=== PATIENT | female | born 1990 | race American Indian/Alaskan Native ===

== ENCOUNTER 2021-09-11 08:34 | Inpatient (IN) | payer MEDICAID ==
[2021-09-11] MEDS ORDERED: LACTATED RINGERS 1,000 ML ONE (09:39)
[2021-09-11] MEDS ORDERED: miSOPROStol 200 MCG TAB PR PRN (11:30)
[2021-09-11] MEDS ORDERED: LIDOCAINE (2%) 20 MG/1 ML VIAL 20 ML MDV INFILTRATI NR (11:35)
[2021-09-11] MEDS ORDERED: OXYTOCIN 10 UNIT/1 ML INJ IM PRN (11:35)
[2021-09-11] MEDS ORDERED: TERBUTALINE 1 MG/1 ML INJ SUB-Q PRN (11:35)
[2021-09-11] MEDS ORDERED: AMPICILLIN/NS 2 GM/100 ML 2 GM/100 ML BAG IV ONE (12:00)
[2021-09-11] MEDS ORDERED: LACTATED RINGERS 1,000 ML IV SCH (12:00)
[2021-09-11] MEDS ORDERED: OXYTOCIN DRIP 30 UNITS/500 ML BAG IV SCH (12:00)
[2021-09-11] MEDS ORDERED: SODIUM CHLORIDE 0.9% 1000 ML 1,000 ML ONE (12:18)
[2021-09-11 12:25] LABS: Hematocrit 39.3 % (30.3-42.9); Hemoglobin 12.4 gm/dl (10.1-14.3); Mean Corpuscular HGB Conc 32 % (30-34); Mean Corpuscular Volume 76 fl (79-97); Platelet Count 206 K/mm3 (140-440); Red Blood Count 5.18 M/mm3 (3.65-5.03); Red Cell Distribution Width 16.6 % (13.2-15.2)
[2021-09-11] MEDS: OXYTOCIN DRIP 30 UNITS/500 ML BAG IV SCH (12:29)
[2021-09-11] MEDS ORDERED: SODIUM CHLORIDE 0.9% 1000 ML 1,000 ML IV SCH (12:30)
[2021-09-11] MEDS ORDERED: METHYLERGONOVINE MALEATE 0.2 MG/ML VIAL IM PRN (12:30)
[2021-09-11] MEDS ORDERED: BUTORPHANOL 2 MG/1 ML INJ IV PRN (12:30)
[2021-09-11] MEDS ORDERED: fentaNYL 100 MCG/2 ML INJ IV PRN (12:30)
[2021-09-11] MEDS ORDERED: ACETAMINOPHEN 325 MG TAB PO PRN (12:30)
[2021-09-11] MEDS ORDERED: LOPERAMIDE 2 MG CAP PO PRN (12:30)
[2021-09-11] MEDS ORDERED: ePHEDrine SULFATE 50 MG/1 ML INJ IV PRN (12:30)
[2021-09-11] MEDS ORDERED: CARBOPROST TROMETHAMINE 250 MCG/1 ML INJ IM PRN (12:30)
[2021-09-11 12:44] LABS: Alanine Aminotransferase 9 units/L (7-56); BUN/Creatinine Ratio 10; Blood Urea Nitrogen 4 mg/dL (7-17); Calcium 9.2 mg/dL (8.4-10.2); Hemolysis Index 0
--- NOTE | 2021-09-11 14:48 | History and Physical Report ---
History of Present Illness Date of examination: 09/11/21 Date of admission: 09/11/21 08:34 Chief complaint: sent for induction from [facility] with pregest vs Gest DM requiring a large amount of insulin for control History of present illness: at at 37.2wks by LMP c/w U/S. PNC at [facility] and records have her as . When asked pt states that she that she did not tell [facility] about her last vag delivery at [place], making her G9 and all vag deliveries. Pt has not eaten all day. Pt admits to movement. Denies LOF or vag bleed or headache. pt states she is not feeling any contractions. labs with AB positive, neg antibody screen, rubella immune, VDRL non- reactive, HepBsAg negative, HIV negative and HSVII negative and no GBS result seen in the chart. Pt desires no future fertility. Past History Past Medical History: asthma, diabetes (unclear if gest vs pre-gest; pt requiring insulin for control) Past Surgical History: no surgical history Social history: no significant social history - Obstetrical History Expected Date of Delivery: 09/30/21 Actual Gestation: 37 Week(s) 2 Day(s) : 9 Hx # Term Pregnancies: 8 Number of Living Children: 8 Medications and Allergies Allergies Allergy/AdvReac Type Severity Reaction Status Date / Time No Known Allergies Allergy Verified 09/11/21 09:27 Active Meds: Active Medications Acetaminophen (Acetaminophen 325 Mg Tab) 650 mg PO Q4H PRN PRN Reason: Pain, Mild (1-3) Butorphanol Tartrate (Butorphanol 2 Mg/1 Ml Inj) 1 mg IV Q2H PRN PRN Reason: Pain, Moderate(4-6) LABOR PAIN Carboprost Tromethamine (Carboprost Tromethamine 250 Mcg/1 Ml Inj) 250 mcg IM ONCE PRN PRN Reason: Uterine Bleeding Ephedrine Sulfate (Ephedrine Sulfate 50 Mg/1 Ml Inj) 10 mg IV Q2M PRN PRN Reason: Hypotension Fentanyl (Fentanyl 100 Mcg/2 Ml Inj) 100 mcg IV Q2H PRN PRN Reason: Pain,Severe (7-10) LABOR PAIN Oxytocin/Sodium Chloride (Pitocin/Ns 30 Unit/500ml) 30 units in 500 mls @ 2 mls/hr IV TITR MARIN; Protocol Last Titration: 09/11/21 13:46 Dose: 4 mls/hr, 4 mls/hr Lactated Ringer's (Lactated Ringers) 1,000 mls @ 125 mls/hr IV DIRECT MARIN Oxytocin/Sodium Chloride (Pitocin/Ns 30 Unit/500ml) 30 units in 500 mls @ 40 mls/hr IV TITR MARIN; Protocol Ampicillin Sodium (Ampicillin/Ns 1 Gm/50 Ml) 1 gm in 50 mls @ 100 mls/hr IV Q4HR ONE; Protocol Stop: 09/11/21 16:29 Sodium Chloride (Nacl 0.9% 1000 Ml) 1,000 mls @ 125 mls/hr IV DIRECT MARIN Last Admin: 09/11/21 12:30 Dose: 125 mls/hr Lidocaine (Lidocaine (2%) 20 Mg/1 Ml Vial 20 Ml Mdv) 20 ml INFILTRATI ONCE NR Stop: 09/11/21 15:00 Loperamide HCl (Loperamide 2 Mg Cap) 2 mg PO ONCE PRN PRN Reason: give with Hemabate Methylergonovine Maleate (Methylergonovine Maleate 0.2 Mg/Ml Vial) 0.2 mg IM ONCE PRN PRN Reason: Uterine Bleeding Mineral Oil (Mineral Oil 30 Ml Oral Liqd) 30 ml PO QHS PRN PRN Reason: Constipation Misoprostol (Misoprostol 200 Mcg Tab) 800 mcg SD ONCE PRN PRN Reason: Uterine Bleeding Oxytocin (Oxytocin 10 Unit/1 Ml Inj) 10 unit IM ONCE PRN PRN Reason: Uterine Bleeding Terbutaline Sulfate (Terbutaline 1 Mg/1 Ml Inj) 0.25 mg SUB-Q ONCE PRN PRN Reason: Hyperstimulation/Hypertonicity Review of Systems All systems: negative (sent for induction) - Vital Signs Vital signs: Vital Signs Pulse Pulse Ox 95 H 98 09/11/21 09:01 09/11/21 09:01 Temp Pulse Resp BP Pulse Ox 98.9 F 98 H 123/83 97 09/11/21 10:30 09/11/21 14:41 09/11/21 09:05 09/11/21 14:41 - Physical Exam Breasts: Positive: deferred Cardiovascular: Regular rate Lungs: Positive: Normal air movement Genitourinary (Female): Positive: normal external genitalia Vulva: both: normal Vagina: Positive: normal moisture Uterus: Positive: enlarged (non-tender) Extremities: Positive: normal - Obstetrical FHR: category 1 Uterine Contraction Monitor Mode: External Cervical Dilatation: 5 (3cm in triage previously) Cervical Effacement Percentage: 80 station: -4 Uterine Contraction Pattern: Irregular Uterine Contraction Intensity: Mild Results Result Diagrams: 09/11/21 Unknown 09/11/21 Unknown Abnormal lab results 09/11/21 09/11/21 09/11/21 Range/Units 10:57 12:04 Unknown RBC 5.18 H (3.65-5.03) M/mm3 MCV 76 L (79-97) fl MCH 24 L (28-32) pg RDW 16.6 H (13.2-15.2) % Sodium (137-145) mmol/L Carbon Dioxide (22-30) mmol/L BUN (7-17) mg/dL Creatinine (0.6-1.2) mg/dL Glucose (65-100) mg/dL POC Glucose 123 H 107 H (70-105) mg/dL Alkaline Phosphatase (35-129) units/L 09/11/21 Range/Units Unknown RBC (3.65-5.03) M/mm3 MCV (79-97) fl MCH (28-32) pg RDW (13.2-15.2) % Sodium 134 L (137-145) mmol/L Carbon Dioxide 20 L (22-30) mmol/L BUN 4 L (7-17) mg/dL Creatinine 0.4 L (0.6-1.2) mg/dL Glucose 121 H (65-100) mg/dL POC Glucose (70-105) mg/dL Alkaline Phosphatase 162 H (35-129) units/L All other labs normal. Assessment and Plan Term , grand multiparous in latent labor, Diabetes ? pregest vs Gest with APA recommendation for delivery. GBS unknown. Pt has valid tubal papers for permanent sterilization. 1. Admit to labor and delivery, normal saline IVF and accucheck hourly and if wnl, then every 2hrs; Will allow dinner meal if not delivered and cover with half the dosage and adjust upward if needed 2. Augment labor with pitocin 3. GBS prophylaxis 4. May have IV pain med or epidural when desired; no meals after epidural given 5. May have albuterol prn wheezing with history of asthma 6. Should have 2nd IV access in prep for possible PPH 7. Will check EFW; Bedside u/s by me confirms vertex with upper extrem fingers seen and felt on exam; Head not engaged Plan of care discussed with pt . Expect
[2021-09-11] MEDS ORDERED: ALBUTEROL 2.5 MG/3 ML NEBU IH PRN (15:40)
[2021-09-11] MEDS ORDERED: AMPICILLIN/NS 1 GM/50 ML 1 GM/50 ML BAG IV ONE (16:00)
[2021-09-11] MEDS ORDERED: INSULIN REGULAR, HUMAN 100 UNITS/1 ML SUB-Q ONE (17:00)
[2021-09-11] MEDS ORDERED: MINERAL OIL 30 ML ORAL LIQD PO PRN (22:00)
[2021-09-11] MEDS ORDERED: INSULIN NPH, HUMAN 100 UNIT/1 ML SUB-Q ONE (22:31)
[2021-09-11] MEDS: miSOPROStol 25 MCG TAB PO SCH (23:35)
[2021-09-11] MEDS: AMPICILLIN/NS 1 GM/50 ML 1 GM/50 ML BAG IV SCH (23:36)
--- NOTE | 2021-09-11 23:41 | Ultrasound Report ---
ULTRASOUND OBSTETRIC INDICATION / CLINICAL INFORMATION: EFW. - Clinical Gestational Age (GA) in weeks, days: 37, 2 TECHNIQUE: Transabdominal. COMPARISON: None available. FINDINGS: Single intrauterine . Biparietal Diameter = 9.2 cm = 37, 3 weeks, days Head Circumference = 33.0 cm = 37, 4 weeks, days Abdominal Circumference = 34.4 cm = 38, 2 weeks, days Femur Length = 7.2 cm = 36, 6 weeks, days Average Ultrasound Age (AUA) = 37, 4 weeks, days Heart Rate: 162 beats per minute. Estimated Weight in grams (if calculated): 3314 g Estimated Weight Growth Percentile (if calculated): 72% Position: cephalic. Cervix: Not evaluated Placenta: Not well visualized Amniotic Fluid Volume: Not evaluated. Maternal Adnexa: Not evaluated. IMPRESSION: 1. Single, living intrauterine with estimated sonographic age of 37, 4 weeks, days. Signer Name: Alfredo Elizabeth MD Signed: 09/11/2021 11:37 PM Workstation Name: [id number]
--- NOTE | 2021-09-11 23:41 | Event Note ---
Date: 09/11/21 CC: IOL secondary to poorly controlled GDMA2 vs. Class B DM HPI: 30 y/o at 37-2/7 weeks gestation is undergoing IOL secondary to poorly controlled GDMA2 vs. class B DM. She was seen by MFM, and this was the recommendation. No VB or LOF. Good FM. CTX are not painful. At a weight of 184 lbs, her insulin regimen at 0.9 units/kg/day is calculated to be: Breakfast= Rapid-acting or regular insulin 17 units SC, and NPH insulin 34 units SC. Dinner= Rapid-acting or regular insulin 12 units SC. Hour of Sleep (HS)= NPH insulin 12 units SC. O: EFM= category 1 TOCO= q 5 minutes, on Pitocin SVE= 5/70%/-4 LABS: HgBA1c= pending TSH= pending Pre-eclampsia labs= pending UPCR= pending RAD: OB US Limited= SLIUP. Vertex. EFW= 3314 g (71st %-ile) IMP: 1.) 37 weeks gestation 2.) GMDA2 vs. Class B DM (more likely), poorly controlled 3.) Asthma, moderate intermittent 4.) Proteinuria 5.) Grand multiparity 6.) GBS unknown 7.) IOL PLAN: 1.) Call office in AM to obtain GBS culture results. 2.) Give HS dose of NPH 12 units tonight. 3.) The patient is likely an undiagnosed Class B DM as she had HgBA1c= 7.2 in D ecember 2020. 4.) If there is no further cervical change with Pitocin, then ripen cervix further with oral misoprostol instead. 5.) Albuterol prescribed. 6.) The patient states that she wants a BTL . 7.) Check accucheck q 1 hour in active labor. 8.) Goal accuchecks in active labor are 79-99 mg/dL. 9.) If accuchecks are >=100 mg/dL in active labor, then start Lantus 30 units SC. 10.) If glucose <70 mg/dL, then switch saline to 5% dextrose IV at 100-150 mL/hr.
[2021-09-12 02:55] LABS: Uric Acid 2.7 mg/dL (3.5-7.6)
[2021-09-12] MEDS: AMPICILLIN/NS 1 GM/50 ML 1 GM/50 ML BAG IV SCH ×2 (03:44→07:32)
[2021-09-12] MEDS: miSOPROStol 25 MCG TAB PO SCH (03:44)
[2021-09-12] MEDS: OXYTOCIN DRIP 30 UNITS/500 ML BAG IV SCH (07:29)
[2021-09-12] MEDS ORDERED: BUTORPHANOL 2 MG/1 ML INJ IV PRN (09:00)
--- NOTE | 2021-09-12 09:18 | Procedure Note ---
OB Delivery Note - Delivery Date of Delivery: 09/12/21 Surgeon: RENETTA WHITMAN Estimated blood loss: other (700cc) - Vaginal Delivery presentation: vertex Delivery position: OA Intrapartum events: uterine atony (treated with methergine 0.2mg) Delivery induction: AROM Delivery augmentation: pitocin (and also given cytotec orally given x2 doses by plate conditioner team with cervix at 5cm ) Delivery monitor: external FHT, external uterine Route of delivery: Delivery placenta: spontaneous Delivery cord: nuchal cord (tight and baby delivered thru same with pt not stopping to push), 3 umbilical vessels Episiotomy: none Delivery laceration: none Anesthesia: none Delivery comments: AROM done by plate conditioner team and nurse called me to bedside with pt pushing. Pt complete and pushing, SAVD of viable female with tight nuchal cord and pt just kept pushing against med advice; manuevers done by me to safely deliver and baby given to JS nurse present. Sudden gush of large amount of blood approx 300-400cc, placenta then delivered complete with 3vessel cord. Bimanual done and methergin 0.2mg given IM for uterine atony. Pitocin also given IV. Total EBL approx 700cc. Pt had abraision to perineum that required no repair. Mom and baby stable. - A at 1 minute: 8 at 5 minutes: 9 Infant Gender: Female (large amount of amniotic fluid clear; wt 3660g)
[2021-09-12] MEDS ORDERED: MAGNESIUM HYDROXIDE (MOM) ORAL LIQD UDC PO PRN (11:30)
[2021-09-12] MEDS ORDERED: ONDANSETRON 4 MG/2 ML INJ IV PRN (11:30)
[2021-09-12] MEDS ORDERED: BENZOCAINE/MENTHOL 20/0.5% TOP SPRAY 56 GM TP PRN (11:30)
[2021-09-12] MEDS ORDERED: diphenhydrAMINE 25 MG CAP PO PRN (11:30)
[2021-09-12] MEDS ORDERED: WITCH HAZEL/ GLYCERIN PAD TP PRN (11:30)
[2021-09-12] MEDS ORDERED: PROMETHAZINE 25 MG RECT SUPP PR PRN (11:30)
[2021-09-12] MEDS ORDERED: LANOLIN/ZINC/DIMETHICONE (LANSINOH) 7 GM TP PRN (11:30)
[2021-09-12] MEDS ORDERED: oxyCODONE /ACETAMINOPHEN 5-325MG TAB PO PRN (12:00)
[2021-09-12] MEDS ORDERED: PROMETHAZINE 25 MG TAB PO PRN (12:00)
[2021-09-12] MEDS ORDERED: OXYTOCIN DRIP 30 UNITS/500 ML BAG IV SCH (12:00)
[2021-09-12] MEDS: IBUPROFEN 600 MG TAB PO SCH ×2 (12:09→17:23)
--- NOTE | 2021-09-12 12:33 | Consultation ---
History of Present Illness - Reason for Consult Consult date: 09/12/21 Diabetes Requesting physician: RENETTA WHITMAN - History of Present Illness 30 YO Female with gestational diabetes status post . Consult placed for diabetes melitis. Patient seen and evaluated in her room. Patient denies fever, chills, chest pain, palpitation, productive cough, skin rash, recent ill contacts, polydipsia, polyuria, polyphagia, or known exposure to COVID-19. No reported nursing events. Past History Past Medical History: diabetes Past Surgical History: No surgical history, Other (Reviewed) Social history: single. denies: smoking, alcohol abuse, prescription drug abuse Family history: hypertension Medications and Allergies Allergies Allergy/AdvReac Type Severity Reaction Status Date / Time No Known Allergies Allergy Verified 09/11/21 09:27 Active Meds: Active Medications Acetaminophen (Acetaminophen 325 Mg Tab) 650 mg PO Q4H PRN PRN Reason: Pain, Mild (1-3) Albuterol (Albuterol 2.5 Mg/3 Ml Nebu) 2.5 mg IH Q4HRT PRN PRN Reason: Shortness Of Breath Benzocaine/Menthol (Benzocaine/Menthol 20/0.5% Top [place] 56 Gm) 1 spray TP PRN PRN PRN Reason: Episiotomy Pain Bisacodyl (Bisacodyl 10 Mg Rect Supp) 10 mg NE BID PRN PRN Reason: Constipation Diphenhydramine HCl (Diphenhydramine 25 Mg Cap) 25 mg PO Q6H PRN PRN Reason: Itching Sodium Chloride (Nacl 0.9% 1000 Ml) 1,000 mls @ 125 mls/hr IV DIRECT MARIN Last Admin: 09/11/21 12:30 Dose: 125 mls/hr Oxytocin/Sodium Chloride (Pitocin/Ns 30 Unit/500ml) 30 units in 500 mls @ 40 mls/hr IV TITR MARIN; Protocol Ibuprofen (Ibuprofen 600 Mg Tab) 600 mg PO Q6H MARIN Loperamide HCl (Loperamide 2 Mg Cap) 2 mg PO ONCE PRN PRN Reason: give with Hemabate Magnesium Hydroxide (Magnesium Hydroxide (Mom) Oral Liqd Udc) 30 ml PO HS PRN PRN Reason: Constipation Multi-Ingredient Ointment (Lanolin/Zinc/Dimethicone (Lansinoh) 7 Gm) 1 applic TP PRN PRN PRN Reason: Sore Nipples Multivitamins/Iron/Calcium ( [id number]-Ll Fumarate-Folic Acid Vit Tab) 1 each PO QDAY MARIN Ondansetron HCl (Ondansetron 4 Mg/2 Ml Inj) 4 mg IV Q8H PRN PRN Reason: Nausea And Vomiting Oxycodone/Acetaminophen (Oxycodone /Acetaminophen 5-325mg Tab) 2 tab PO Q6H PRN PRN Reason: Pain, Moderate (4-6) Promethazine HCl (Promethazine 25 Mg Rect Supp) 25 mg NE Q6H PRN PRN Reason: Nausea And Vomiting Promethazine HCl (Promethazine 25 Mg Tab) 25 mg PO Q6H PRN PRN Reason: Nausea And Vomiting Sodium Chloride (Sodium Chloride 0.9% 10 Ml Flush Syringe) 10 ml IV PRN PRN PRN Reason: flush Witch Jodi/Glycerin (Witch Jodi/ Glycerin Pad) 1 each TP PRN PRN PRN Reason: Hemorrhoid/cleansing/soothing Review of Systems Constitutional: no weight loss, no weight gain, no fever Ears, nose, mouth and throat: no ear pain, no decreased hearing, no nose pain Breasts: no change in shape, no swelling, no mass Cardiovascular: no chest pain, no orthopnea, no palpitations Respiratory: no cough, no cough with sputum, no hemoptysis, no shortness of breath Gastrointestinal: no abdominal pain, no nausea, no vomiting, no diarrhea Genitourinary Female: no pelvic pain, no flank pain, no dysuria, no urinary frequency, no urgency Rectal: no pain, no incontinence, no bleeding Musculoskeletal: no neck stiffness, no neck pain, no arm numbness/tingling, no leg numbness/tingling Integumentary: no rash, no pruritis, no redness, no sores, no wounds Neurological: no transient paralysis, no paralysis, no weakness, no numbness, no tingling, no syncope, no tremors Psychiatric: no anxiety, no memory loss, no change in sleep habits, no hype rsomnia, no change in libido, no suicidal ideation Endocrine: no cold intolerance, no polyphagia, no excessive thirst, no polyuria Hematologic/Lymphatic: no easy bruising, no easy bleeding Allergic/Immunologic: no urticaria, no allergic rhinitis Exam - Constitutional Vitals: Temp Pulse Resp BP Pulse Ox 98.5 F 104 H 128/84 83 L 09/11/21 20:56 09/12/21 10:07 09/12/21 10:05 09/12/21 10:07 General appearance: Present: no acute distress, well-nourished - EENT Eyes: Present: PERRL ENT: hearing intact, clear oral mucosa - Neck Neck: Present: supple, normal ROM - Respiratory Respiratory effort: normal Respiratory: bilateral: CTA - Cardiovascular Heart Sounds: Present: S1 & S2. Absent: rub, click - Extremities Extremities: pulses symmetrical, No edema Peripheral Pulses: within normal limits - Abdominal General gastrointestinal: Present: soft, non-tender, non-distended, normal bowel sounds Female genitourinary: Present: normal - Integumentary Integumentary: Present: clear, warm, dry - Musculoskeletal Musculoskeletal: gait normal, strength equal bilaterally - Psychiatric Psychiatric: appropriate mood/affect, intact judgment & insight - Neurologic Neurologic: CNII-XII intact, moves all extremities Results - Labs CBC & Chem 7: 09/11/21 Unknown 09/11/21 Unknown Labs: Abnormal lab results 09/11/21 09/11/21 09/11/21 Range/Units 18:02 18:59 Unknown Sodium 134 L (137-145) mmol/L Carbon Dioxide 20 L (22-30) mmol/L BUN 4 L (7-17) mg/dL Creatinine 0.4 L (0.6-1.2) mg/dL Glucose 121 H (65-100) mg/dL POC Glucose 143 H 126 H (70-105) mg/dL Hemoglobin A1c (4-6) % Uric Acid (3.5-7.6) mg/dL Alkaline Phosphatase 162 H (35-129) units/L Lactate Dehydrogenase (91-180) units/L 09/11/21 09/11/21 Range/Units Unknown Unknown Sodium (137-145) mmol/L Carbon Dioxide (22-30) mmol/L BUN (7-17) mg/dL Creatinine (0.6-1.2) mg/dL Glucose (65-100) mg/dL POC Glucose (70-105) mg/dL Hemoglobin A1c 7.0 H (4-6) % Uric Acid 2.7 L (3.5-7.6) mg/dL Alkaline Phosphatase (35-129) units/L Lactate Dehydrogenase 197 H (91-180) units/L Assessment and Plan - Patient Problems (1) Gestational diabetes Current Visit: Yes Status: Acute Plan to address problem: Suspect improvement in gestational diabetes status post vaginal delivery. We will continue Accu-Cheks, sliding scale insulin. Patient counseled regarding carbohydrate counting. Blood glucose log 3 times daily and outpatient follow-up with primary care physician.
[2021-09-12] MEDS ORDERED: DEXTROSE 50% IN WATER (25GM) 50 ML SYRINGE IV PRN (12:35)
[2021-09-12] MEDS: INSULIN LISPRO 100 UNIT/ML SUB-Q SCH ×2 (16:09→22:37)
[2021-09-12 16:18] LABS: Bilirubin,Urine NEG (Negative); Blood,Urine LG (Negative); Color,Urine Red (Yellow); Mucus,Urine FEW /HPF; Urobilinogen,Urine < 2.0 mg/dL (<2.0)
[2021-09-12 16:19] LABS: RBC,Urine > 182.0 /HPF (0.0-6.0)
[2021-09-12 16:27] LABS: Creatinine,Urine 27.2 mg/dL (0.1-20.0)
[2021-09-12 21:22] LABS: Hematocrit 35.6 % (30.3-42.9)
[2021-09-13] MEDS: IBUPROFEN 600 MG TAB PO SCH ×3 (01:21→21:04)
[2021-09-13] MEDS: INSULIN LISPRO 100 UNIT/ML SUB-Q SCH ×3 (07:52→19:50)
[2021-09-13] MEDS: PRENATAL VIT27-FE FUMARATE-FOLIC ACID VIT TAB PO SCH (09:35)
[2021-09-13] MEDS: metFORMIN XR 500MG TAB PO SCH (10:03)
--- NOTE | 2021-09-13 15:20 | Progress Note ---
Assessment and Plan PPD#1 with uncontrolled diabetes, desires contraception with depo prior to discharge 1. Depo injection 2. routine care 3. Appreciate hospitalist Dr. Veloz and will continue daily metformin ordered by Dr. Paris and adjust per med team All questions encouraged and answered Subjective Date of service: 09/13/21 Principal diagnosis: PPD#1 , uncontrolled DM Interval history: pt states she feels much better. pt states she got the metformin pill and also 1 SS insulin coverage dose. Pt is bottle feeding. Denies pelvic pain and is voiding without difficulty. pt desires no future fertility and desires depo contraception prior to discharge. Objective - Constitutional Vitals: Vital Signs - 12hr 09/13/21 09/13/21 06:20 07:57 Temperature 98.3 F Pulse Rate 76 Respiratory 18 18 Rate Blood Pressure 94/62 O2 Sat by Pulse 97 Oximetry General appearance: Present: no acute distress - Neck Neck: normal ROM - Respiratory Respiratory effort: normal - Breasts Breasts: deferred - Cardiovascular Rhythm: regular Extremities: No edema - Gastrointestinal General gastrointestinal: Present: soft - Genitourinary Female genitourinary: other (Fundus firm, 3cm below the umbilicus and non- tender) - Integumentary Integumentary: warm, dry - Neurologic Neurologic: moves all extremities - Psychiatric Psychiatric: cooperative - Labs CBC & Chem 7: 09/12/21 20:47 09/11/21 Unknown Labs: Abnormal lab results 09/12/21 09/12/21 09/12/21 Range/Units 16:00 16:00 16:02 POC Glucose 110 H (70-105) mg/dL Urine WBC (Auto) 22.0 H (0.0-6.0) /HPF Urine Creatinine 27.2 H (0.1-20.0) mg/dL Urine Total Protein 35 H (5-11.8) mg/dL 09/12/21 09/13/21 Range/Units 22:30 13:46 POC Glucose 166 H 120 H (70-105) mg/dL Urine WBC (Auto) (0.0-6.0) /HPF Urine Creatinine (0.1-20.0) mg/dL Urine Total Protein (5-11.8) mg/dL Medications & Allergies - Medications Allergies/Adverse Reactions: Allergies No Known Allergies Allergy (Verified 09/11/21 09:27) Active Medications: Generic Name Dose Route Start Last Admin Trade Name Freq PRN Reason Stop Dose Admin Acetaminophen 650 mg 09/11/21 12:30 Acetaminophen 325 Mg Tab PO Q4H PRN Pain, Mild (1-3) Albuterol 2.5 mg 09/11/21 15:40 Albuterol 2.5 Mg/3 Ml Nebu IH Q4HRT PRN Shortness Of Breath Benzocaine/Menthol 1 spray 09/12/21 11:30 Benzocaine/Menthol 20/0.5% Top [place] 56 Gm TP PRN PRN Episiotomy Pain Bisacodyl 10 mg 09/12/21 12:00 Bisacodyl 10 Mg Rect Supp AL BID PRN Constipation Dextrose 50 ml 09/12/21 12:35 Dextrose 50% In Water (25gm) 50 Ml Syringe IV Q30MIN PRN Hypoglycemia Protocol Diphenhydramine HCl 25 mg 09/12/21 11:30 Diphenhydramine 25 Mg Cap PO Q6H PRN Itching Sodium Chloride 1,000 mls @ 125 mls/hr 09/11/21 12:30 09/11/21 12:30 Nacl 0.9% 1000 Ml IV 125 mls/hr DIRECT MARIN Administration Oxytocin/Sodium Chloride 30 units in 500 mls @ 40 mls/hr 09/12/21 12:00 Pitocin/Ns 30 Unit/500ml IV TITR [facility] Protocol Ibuprofen 600 mg 09/12/21 12:00 09/13/21 06:20 Ibuprofen 600 Mg Tab PO Not Given Q6H MARIN Insulin Human Lispro 0 unit 09/12/21 16:30 09/13/21 14:05 Insulin Lispro 100 Unit/Ml SUB-Q Not Given ACHS [facility] Protocol Loperamide HCl 2 mg 09/11/21 12:30 Loperamide 2 Mg Cap PO ONCE PRN give with Hemabate Magnesium Hydroxide 30 ml 09/12/21 11:30 Magnesium Hydroxide (Mom) Oral Liqd Udc PO HS PRN Constipation Metformin HCl 500 mg 09/13/21 08:00 09/13/21 10:03 Metformin Xr 500mg Tab PO 500 mg QDDIAB MARIN Administration Multi-Ingredient Ointment 1 applic 09/12/21 11:30 Lanolin/Zinc/Dimethicone (Lansinoh) 7 Gm TP PRN PRN Sore Nipples Multivitamins/Iron/Calcium 1 each 09/12/21 12:00 09/13/21 09:35 [id number] Fumarate-Folic Acid Vit Tab PO 1 each QDAY MARIN Administration Ondansetron HCl 4 mg 09/12/21 11:30 Ondansetron 4 Mg/2 Ml Inj IV Q8H PRN Nausea And Vomiting Oxycodone/Acetaminophen 2 tab 09/12/21 12:00 Oxycodone /Acetaminophen 5-325mg Tab PO Q6H PRN Pain, Moderate (4-6) Promethazine HCl 25 mg 09/12/21 11:30 Promethazine 25 Mg Rect Supp AL Q6H PRN Nausea And Vomiting Promethazine HCl 25 mg 09/12/21 12:00 Promethazine 25 Mg Tab PO Q6H PRN Nausea And Vomiting Sodium Chloride 10 ml 09/12/21 12:00 Sodium Chloride 0.9% 10 Ml Flush Syringe IV PRN PRN flush Witch Jodi/Glycerin 1 each 09/12/21 11:30 Witch Jodi/ Glycerin Pad TP PRN PRN Hemorrhoid/cleansing/soothing
[2021-09-13] MEDS ORDERED: medroxyPROGESTERone ACETATE 150 MG/ML SYRINGE IM ONE (16:24)
--- NOTE | 2021-09-13 17:16 | Progress Note ---
Assessment and Plan Assessment and plan: #Gestational diabetes -continue Accu-Cheks plus sliding scale insulin while inpatient -glucose controlled per chart review -Hemoglobin A1c 7.0% -Continue metformin -Counseled patient on need to continue metformin after discharge and to follow up with PCP for repeat A1C in 3 months Thank you for this consult. Will sign off at this time. Call with questions and concerns. Disposition Plan: per primary Total Time Spent with Patient (Minutes): 20 minutes History Interval history: No acute events overnight. Patient reports using insulin during . Has no complaints at this time. Hospitalist Physical - Physical exam Narrative exam: GENERAL: Well-developed well-nourished. Sitting up in bed in no acute distress. HEENT: Normocephalic. Atraumatic. NECK: Supple. CHEST/LUNGS: CTAB on room air HEART/CARDIOVASCULAR: RRR. No murmur, rubs or gallops appreciated. ABDOMEN: +BS. NT/ND. SKIN: No rashes noted. NEURO: No focal motor deficit. Follows all commands. MUSCULOSKELETAL: No joint effusion EXTREMITIES: No cyanosis, clubbing or edema. PSYCH: Cooperative. - Constitutional Vitals: Temp Pulse Resp BP Pulse Ox 98.2 F 84 18 113/79 96 09/13/21 15:25 09/13/21 15:25 09/13/21 15:25 09/13/21 15:25 09/13/21 15:25 General appearance: Present: no acute distress Results - Labs CBC & Chem 7: 09/12/21 20:47 09/11/21 Unknown Labs: Laboratory Last Values WBC 7.8 K/mm3 (4.5-11.0) 09/11/21 Unknown RBC 5.18 M/mm3 (3.65-5.03) H 09/11/21 Unknown Hgb 11.0 gm/dl (10.1-14.3) 09/12/21 20:47 Hct 35.6 % (30.3-42.9) 09/12/21 20:47 MCV 76 fl (79-97) L 09/11/21 Unknown MCH 24 pg (28-32) L 09/11/21 Unknown MCHC 32 % (30-34) 09/11/21 Unknown RDW 16.6 % (13.2-15.2) H 09/11/21 Unknown Plt Count 206 K/mm3 (140-440) 09/11/21 Unknown Sodium 134 mmol/L (137-145) L 09/11/21 Unknown Potassium 4.1 mmol/L (3.6-5.0) 09/11/21 Unknown Chloride 99.0 mmol/L (98-107) 09/11/21 Unknown Carbon Dioxide 20 mmol/L (22-30) L 09/11/21 Unknown Anion Gap 19 mmol/L 09/11/21 Unknown BUN 4 mg/dL (7-17) L 09/11/21 Unknown Creatinine 0.4 mg/dL (0.6-1.2) L 09/11/21 Unknown Estimated GFR > 60 ml/min 09/11/21 Unknown BUN/Creatinine Ratio 10 % 09/11/21 Unknown Glucose 121 mg/dL (65-100) H 09/11/21 Unknown POC Glucose 119 mg/dL (70-105) H 09/13/21 16:36 Hemoglobin A1c 7.0 % (4-6) H 09/11/21 Unknown Uric Acid 2.7 mg/dL (3.5-7.6) L 09/11/21 Unknown Calcium 9.2 mg/dL (8.4-10.2) 09/11/21 Unknown Total Bilirubin 0.40 mg/dL (0.1-1.2) 09/11/21 Unknown AST 18 units/L (5-40) 09/11/21 Unknown ALT 9 units/L (7-56) 09/11/21 Unknown Alkaline Phosphatase 162 units/L (35-129) H 09/11/21 Unknown Lactate Dehydrogenase 197 units/L (91-180) H 09/11/21 Unknown Total Protein 7.0 g/dL (6.3-8.2) 09/11/21 Unknown Albumin 4.0 g/dL (3.9-5) 09/11/21 Unknown Albumin/Globulin Ratio 1.3 % 09/11/21 Unknown TSH 0.301 mlU/mL (0.270-4.200) 09/11/21 Unknown Urine Color Red (Yellow) 09/12/21 16:00 Urine Turbidity Slightly-cloudy (Clear) 09/12/21 16:00 Urine pH 6.0 (5.0-7.0) 09/12/21 16:00 Ur Specific [place] 1.006 (1.003-1.030) 09/12/21 16:00 Urine Protein 30 mg/dl mg/dL (Negative) 09/12/21 16:00 Urine Glucose (UA) >=500 mg/dL (Negative) 09/12/21 16:00 Urine Ketones Tr mg/dL (Negative) 09/12/21 16:00 Urine Blood Lg (Negative) 09/12/21 16:00 Urine Nitrite Neg (Negative) 09/12/21 16:00 Urine Bilirubin Neg (Negative) 09/12/21 16:00 Urine Urobilinogen < 2.0 mg/dL (<2.0) 09/12/21 16:00 Ur Leukocyte Esterase Sm (Negative) 09/12/21 16:00 Urine WBC (Auto) 22.0 /HPF (0.0-6.0) H 09/12/21 16:00 Urine RBC (Auto) > 182.0 /HPF (0.0-6.0) 09/12/21 16:00 U Epithel Cells (Auto) 4.0 /HPF (0-13.0) 09/12/21 16:00 Urine Mucus Few /HPF 09/12/21 16:00 Urine Creatinine 27.2 mg/dL (0.1-20.0) H 09/12/21 16:00 Urine Total Protein 35 mg/dL (5-11.8) H 09/12/21 16:00 SARS-CoV-2 (PCR) Negative (Negative) 09/11/21 09:26 Blood Type AB POSITIVE 09/11/21 Unknown Antibody Screen Negative 09/11/21 Unknown Microbiology: Microbiology 09/12/21 16:00 Urine,Clean Catch Urine Culture - Preliminary NO GROWTH AFTER 24 HOURS Active Medications - Current Medications Current Medications: Generic Name Dose Route Start Last Admin Trade Name Freq PRN Reason Stop Dose Admin Acetaminophen 650 mg 09/11/21 12:30 Acetaminophen 325 Mg Tab PO Q4H PRN Pain, Mild (1-3) Albuterol 2.5 mg 09/11/21 15:40 Albuterol 2.5 Mg/3 Ml Nebu IH Q4HRT PRN Shortness Of Breath Benzocaine/Menthol 1 spray 09/12/21 11:30 Benzocaine/Menthol 20/0.5% Top [place] 56 Gm TP PRN PRN Episiotomy Pain Bisacodyl 10 mg 09/12/21 12:00 Bisacodyl 10 Mg Rect Supp [place] BID PRN Constipation Dextrose 50 ml 09/12/21 12:35 Dextrose 50% In Water (25gm) 50 Ml Syringe IV Q30MIN PRN Hypoglycemia Protocol Diphenhydramine HCl 25 mg 09/12/21 11:30 Diphenhydramine 25 Mg Cap PO Q6H PRN Itching Sodium Chloride 1,000 mls @ 125 mls/hr 09/11/21 12:30 09/11/21 12:30 Nacl 0.9% 1000 Ml IV 125 mls/hr DIRECT MARIN Administration Oxytocin/Sodium Chloride 30 units in 500 mls @ 40 mls/hr 09/12/21 12:00 Pitocin/Ns 30 Unit/500ml IV TITR [facility] Protocol Ibuprofen 600 mg 09/12/21 12:00 09/13/21 06:20 Ibuprofen 600 Mg Tab PO Not Given Q6H MARIN Insulin Human Lispro 0 unit 09/12/21 16:30 09/13/21 14:05 Insulin Lispro 100 Unit/Ml SUB-Q Not Given ACHS [facility] Protocol Loperamide HCl 2 mg 09/11/21 12:30 Loperamide 2 Mg Cap PO ONCE PRN give with Hemabate Magnesium Hydroxide 30 ml 09/12/21 11:30 Magnesium Hydroxide (Mom) Oral Liqd Udc PO HS PRN Constipation Metformin HCl 500 mg 09/13/21 08:00 09/13/21 10:03 Metformin Xr 500mg Tab PO 500 mg QDDIAB [facility] Administration Multi-Ingredient Ointment 1 applic 09/12/21 11:30 Lanolin/Zinc/Dimethicone (Lansinoh) 7 Gm TP PRN PRN Sore Nipples Multivitamins/Iron/Calcium 1 each 09/12/21 12:00 09/13/21 09:35 [id number] Fumarate-Folic Acid Vit Tab PO 1 each QDAY [facility] Administration Ondansetron HCl 4 mg 09/12/21 11:30 Ondansetron 4 Mg/2 Ml Inj IV Q8H PRN Nausea And Vomiting Oxycodone/Acetaminophen 2 tab 09/12/21 12:00 Oxycodone /Acetaminophen 5-325mg Tab PO Q6H PRN Pain, Moderate (4-6) Promethazine HCl 25 mg 09/12/21 11:30 Promethazine 25 Mg Rect Supp [place] Q6H PRN Nausea And Vomiting Promethazine HCl 25 mg 09/12/21 12:00 Promethazine 25 Mg Tab PO Q6H PRN Nausea And Vomiting Sodium Chloride 10 ml 09/12/21 12:00 Sodium Chloride 0.9% 10 Ml Flush Syringe IV PRN PRN flush Witch Jodi/Glycerin 1 each 09/12/21 11:30 Witch Jodi/ Glycerin Pad TP PRN PRN Hemorrhoid/cleansing/soothing
[2021-09-14] MEDS: IBUPROFEN 600 MG TAB PO SCH ×2 (07:41→16:45)
[2021-09-14] MEDS: INSULIN LISPRO 100 UNIT/ML SUB-Q SCH ×3 (07:42→11:43)
[2021-09-14] MEDS: metFORMIN XR 500MG TAB PO SCH (08:12)
[2021-09-14] MEDS: PRENATAL VIT27-FE FUMARATE-FOLIC ACID VIT TAB PO SCH (09:29)
--- NOTE | 2021-09-14 12:42 | Progress Note ---
Assessment and Plan A: day 2 S/P . Uncontrolled diabetes. P: Will discharge patient home when she is cleared by hospitalist to go home. Continue routine care. Encouraged patient to avoid sodas and juices and other processed foods. Subjective - Subjective Date of service: 09/14/21 Principal diagnosis: PPD#2 , uncontrolled DM Interval history: Patient is being followed by hospitalist due to uncontrolled diabetes. Patient has had labile blood pressures. Patient has been drinking juice; advised patient to avoid juices and sodas and processed foods. Urine culture showed no growth. H&H stable. Patient reports: appetite normal, voiding normally, pain well controlled, flatus, ambulating normally, no dizzy ambulation, no nauseated [place]: doing well Objective - Vital Signs Latest vital signs: Vital Signs Temp Pulse Resp BP Pulse Ox Pulse Ox 09/14/21 08:00 98 09/14/21 07:54 98.2 F 82 18 121/80 97 09/14/21 00:32 97.5 F L 76 20 108/60 97 09/13/21 21:37 96 09/13/21 15:25 98.2 F 84 18 113/79 96 Intake and Output 09/13/21 09/14/21 09/14/21 23:59 07:59 15:59 Intake Total 360 720 240 Balance 360 720 240 Intake: Oral 360 360 240 Intake, Free Water 360 Other: Total, Intake Amount 360 360 240 # Voids Void 1 1 1 - Exam Cardiovascular: Present: Regular rate, No murmurs Lungs: Present: Clear to auscultation Abdomen: Present: normal appearance, soft, normal bowel sounds. Absent: distention, tenderness, guarding, rigidity Uterus: Present: normal, firm, fundal height below umbilicus. Absent: bogginess, tenderness Extremities: Absent: tenderness - Labs Labs: Abnormal lab results 09/13/21 09/13/21 09/13/21 Range/Units 13:46 16:36 23:20 POC Glucose 120 H 119 H 143 H (70-105) mg/dL 09/14/21 09/14/21 Range/Units 08:03 11:02 POC Glucose 111 H 138 H (70-105) mg/dL
[2021-09-14 15:53] VITALS: BP 126/83
--- NOTE | 2021-09-14 15:57 | Event Note ---
Date: 09/14/21 Hospitalist signed off on patient; will discharge patient home. Discussed with patient discharge instructions and warning signs. Advised patient to avoid intercourse, lifting, and heavy housework. Advised patient to continue taking her vitamin daily at home. Advised patient to take her Metformin 500 mg po QD at home as recommended by hospitalist (Rx for Metformin 500 mg, #30, 1 po QD called to [facility] pharmacy on [address]). Advised patient to follow up with [facility] in 1 week and with her PCP in 1 week. Patient voiced understanding of all instructions.
--- NOTE | 2021-09-14 16:25 | Discharge Summary ---
Providers - Providers Date of Admission: 09/11/21 08:34 Date of discharge: 09/14/21 Attending physician: RENETTA WHITMAN 09/12/21 11:38 Consult to Physician [CONS] Urgent Comment: recommendation for mgt Consulting Provider: NAKUL ALMANZA Physician Instructions: Reason For Exam: hgb A1c7; pt ppd#0 , tx for DM ? pre vs gest DM Primary care physician: [facility] Hospitalization Reason for admission: induction of labor Delivery: Episiotomy: none Other procedures: none complications: none Discharge diagnosis: IUP at term delivered [place] baby: female Pertinent studies: Labs Hospital course: Uncomplicated hospital course Condition at discharge: Good Disposition: 01 HOME / SELF CARE / HOMELESS - Discharge Diagnoses (1) Term delivered Status: Acute Plan - Provider Discharge Summary Activity: routine, no sex for 6 weeks, no heavy lifting 4 weeks, no strenuous exercise Diet: routine Instructions: routine Additional instructions: Continue taking your vitamin daily at home. Continue taking your Metformin at home as prescribed. Follow up at [facility] in 1 week. Follow up at your PCP office in 1 week. Call your doctor immediately for: * Fever > 100.5 * Heavy vaginal bleeding ( >1 pad per hour) * Severe persistent headache * Shortness of breath * Reddened, hot, painful area to leg or breast - Follow up plan Follow up: PRIMARY CAREMD [Primary Care Provider] - 7 Days Forms: [facility] Discharge Summary
[2021-09-14] MEDS ORDERED: medroxyPROGESTERone ACETATE 150 MG/ML SYRINGE IM NR (17:00)
== END 2021-09-14 17:00 | disposition home or self-care (01) | DRG 775 ==
LOC: LD 08:34 → OB 09-12 10:48
PROVIDERS: ADMIT Obstetrics & Gynecology; ATTEND Obstetrics & Gynecology
PROC: 10E0XZZ Delivery of Products of Conception, External Approach (ICD-10-PCS; principal; 2021-09-12)
PROC: 10907ZC Drainage of Amniotic Fluid, Therapeutic from Products of Conception, Via Natural or Artificial Opening (ICD-10-PCS; 2021-09-12)
DX: O13.4 Gestational [pregnancy-induced] hypertension without significant proteinuria, complicating childbirth (principal); Z3A.37 37 weeks gestation of pregnancy; Z20.822 Contact with and (suspected) exposure to COVID-19; Z37.0 Single live birth; O99.52 Diseases of the respiratory system complicating childbirth; J45.909 Unspecified asthma, uncomplicated; O69.81X0 Labor and delivery complicated by cord around neck, without compression, not applicable or unspecified; O62.2 Other uterine inertia; O71.82 Other specified trauma to perineum and vulva
CPT/HCPCS: 36415; 59020; 59025; 76816; 80053; 81001; 82570; 82962; 83036; 83615; 84156; 84443; 84550; 85014; 85018; 85027; 86850; 86900; 86901; 87086; 96360; 96365; 96366; 96372; 96374; G0378; J2354; Q0162; Q9967; J0290; J0595; J1050; J1815; J2210; J2590; J7030; U0003